=== PATIENT | male | born 1970 | race Hispanic/Latino ===

== ENCOUNTER 2018-11-11 18:11 | Emergency (ER) | payer OTHER ==
[2018-11-11 18:27] VITALS: TEMP 98.5; BMI 34.6
[2018-11-11] MEDS ORDERED: Naproxen 500 MG TAB PO ONE ×2 (20:21→20:32)
--- NOTE | 2018-11-11 20:24 | ED PDOC ---
Upper Extremity Pain/Injury Time Seen by Provider: 11/11/18 20:09 Chief Complaint (Nursing): Upper Extremity Problem/Injury Chief Complaint (Provider): right shoulder pain History Per: Patient, Hogshead Hooper (maciel #[id number]) Onset/Duration Of Symptoms: Days (6) Current Symptoms Are (Timing): Still Present Additional Complaint(s): 47 y/o male presents for evaluation of right shoulder pain x 6 days. 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 Pain worsened with movement. Denies swelling, numbness/weakness right upper extremity. Last dose Ibuprofen taken yesterday Past Medical History Reviewed: Historical Data, Nursing Documentation, Vital Signs Vital Signs: Last Vital Signs Temp 98.5 F 11/11/18 18:26 Pulse 82 11/11/18 18:26 Resp 16 11/11/18 18:26 BP 123/78 11/11/18 18:26 Pulse Ox 96 11/11/18 18:26 - Medical History PMH: Diabetes (type II) Denies: Asthma, HIV, Chronic Kidney Disease - Surgical History Surgical History: No Surg Hx - Family History Family History: States: Unknown Family Hx - Immunization History Hx Tetanus Toxoid Vaccination: No Hx Influenza Vaccination: No Hx Pneumococcal Vaccination: No - Home Medications Home Medications: Ambulatory Orders Medication Instructions Recorded Insulin Aspart/Insulin Aspar 20 units SC ACD #0 vial 04/23/15 [Novolog Mix 70/30 (70/30 units/ml)] Insulin Aspart/Insulin Aspar 30 units SC ACB #0 vial 04/23/15 [Novolog Mix 70/30 (70/30 units/ml)] Meloxicam [Mobic] 15 mg PO DAILY PRN #30 tab 11/20/15 Cyclobenzaprine [Cyclobenzaprine 10 mg PO BID #14 tab 01/28/16 HCl] Ibuprofen [Motrin] 400 mg PO Q6 #30 tab 01/28/16 tiZANidine [Zanaflex] 4 mg PO Q8H PRN #20 tab 02/08/16 traMADol [Ultram] 50 mg PO TID PRN #15 tab 02/08/16 Cyclobenzaprine [Cyclobenzaprine 10 mg PO TID PRN #15 tab 05/21/16 HCl] Naproxen [Naprosyn] 500 mg PO BID PRN #15 tablet 05/21/16 Naproxen [Naprosyn] 500 mg PO Q12 PRN #14 tablet 11/11/18 - Allergies Allergies/Adverse Reactions: Allergies Allergy/AdvReac Type Severity Reaction Status Date / Time No Known Allergies Allergy Verified 11/11/18 18:27 Review of Systems ROS Statement: Except As Marked, All Systems Reviewed And Found Negative Musculoskeletal: Positive for: Shoulder Pain (right) Physical Exam - Reviewed Nursing Documentation Reviewed: Yes Vital Signs Reviewed: Yes - Physical Exam Appears: Positive for: Well, Non-toxic, No Acute Distress Head Exam: Positive for: NORMOCEPHALIC Skin: Positive for: Normal Color Pulses-Radial (L): 2+ Pulses-Radial (R): 2+ Extremity: Positive for: Normal ROM, Tenderness (anterior right shoulder; FROM. Distal NV/motor intact), Capillary Refill (<3 sec b/l UE). Negative for: Deformity, Swelling Neurological/Psych: Positive for: Awake, Alert, Oriented - ECG O2 Sat by Pulse Oximetry: 96 - Other Rad xray right shoulder X-Ray: Viewed By [facility] X-Ray Interpretation: no acute findings - Progress ED Course And Treament: -naproxen PO -right shoulder xray Patient educated on findings, right arm sling applied Advised RICE Rx Naproxen provided Follow up PMD within 2-3 days Return precautions given Disposition - Clinical Impression Clinical Impression: Sprain of shoulder, right - Patient ED Disposition Is Patient to be Admitted: No Counseled Patient/Family Regarding: Studies Performed, Diagnosis, Need For Followup, Rx Given - Disposition Referrals: [facility] [Outside] Disposition: Routine/Home Disposition Time: 21:10 Condition: IMPROVED Prescriptions: Naproxen [Naprosyn] 500 mg PO Q12 PRN #14 tablet PRN Reason: Pain, Moderate (4-7) Instructions: Shoulder Sprain Print Language: SENEGALESE
[2018-11-11 21:42] VITALS: BP 122/60; PULSE 88; RESP 18; O2SAT 97
--- NOTE | 2018-11-12 09:29 | RAD ---
Date of service: 11/11/2018 PROCEDURE: Radiographs of the Right Shoulder HISTORY: pain COMPARISON: No prior. FINDINGS: BONES: No acute fracture or destructive bony lesion identified. JOINTS: Limited degenerative acromioclavicular joint changes are identified. Glenohumeral joint appears unremarkable. SOFT TISSUES: Normal. OTHER FINDINGS: None. IMPRESSION: Limited right acromioclavicular joint degenerative change. No acute fracture, subluxation or dislocation evident.
== END 2018-11-11 21:41 | disposition home or self-care (01) ==
LOC: H.ER 18:11
DX: S43.401A Unspecified sprain of right shoulder joint, initial encounter (principal); E11.9 Type 2 diabetes mellitus without complications; X50.0XXA Overexertion from strenuous movement or load, initial encounter; Y99.0 Civilian activity done for income or pay; Z79.4 Long term (current) use of insulin